=== PATIENT | female | born 1955 | race American Indian/Alaskan Native ===

== ENCOUNTER 2019-10-15 00:59 | Emergency (ER) | payer MEDICARE ==
[2019-10-15] MEDS ORDERED: traMADol 50 MG TAB PO ONE (01:58)
--- NOTE | 2019-10-15 02:22 | XRay Report ---
LEFT SHOULDER 3 VIEW(S) INDICATION / CLINICAL INFORMATION: fall injury COMPARISON: None available. FINDINGS: BONES / JOINT(S): No acute fracture or subluxation. No significant arthritis. SOFT TISSUES: No significant abnormality. ADDITIONAL FINDINGS: None. Signer Name: Annetta Chen MD Signed: 10/15/2019 2:18 AM Workstation Name: [id number]
--- NOTE | 2019-10-15 02:50 | Emergency Department Report ---
ED Extremity Problem HPI - General Chief complaint: Fall Stated complaint: FALL/L SHOULDER PAIN Time Seen by Provider: 10/15/19 01:51 Source: patient, family Mode of arrival: Wheelchair Limitations: No Limitations - History of Present Illness Initial comments: Patient is a 64-year-old F [place] female with past medical history of schizophrenia and also recent diagnosis of ascites who is still undergoing evaluation who is presenting status post fall. Patient states that she was going up her sister stairs with a heavy bag of [employer] salt and she lost her balance and fell backwards down approximately 6-7 stairs. She states she was trying to take care to not hit her head. She is denies any head injury or loss of consciousness. Patient is complaining of left shoulder pain which is worse with movement and better with rest. Patient states that the pain is 8 out of 10 in severity. She denies any abdominal pain hip pain or lower extremity pain at this time. Severity scale (0 -10): 4 - Related Data Previous Rx's Medication Instructions Recorded Last Taken Type methOCARBAMOL [Robaxin TAB] 500 mg PO Q6H PRN #14 tablet 10/15/19 Unknown Rx traMADoL [Ultram] 50 mg PO Q6HR PRN #12 tablet 10/15/19 Unknown Rx Allergies Allergy/AdvReac Type Severity Reaction Status Date / Time No Known Allergies Allergy Verified 10/15/19 01:10 ED Review of Systems ROS: Stated complaint: FALL/L SHOULDER PAIN Other details as noted in HPI Comment: All other systems reviewed and negative ED Past Medical Hx - Past Medical History Previous Medical History?: Yes Hx Hypertension: Yes Hx Congestive Heart Failure: Yes Hx Psychiatric Treatment: Yes (paranoid schizo) Additional medical history: hypothyroid. Hep C. - Surgical History Past Surgical History?: No - Social History Smoking Status: Never Smoker Substance Use Type: None - Medications Home Medications: Home Medications Medication Instructions Recorded Confirmed Last Taken Type methOCARBAMOL [Robaxin TAB] 500 mg PO Q6H PRN #14 tablet 10/15/19 Unknown Rx traMADoL [Ultram] 50 mg PO Q6HR PRN #12 tablet 10/15/19 Unknown Rx ED Physical Exam - General Limitations: No Limitations General appearance: alert, in no apparent distress - Head Head exam: Present: atraumatic, normocephalic - Eye Eye exam: Present: normal appearance - ENT ENT exam: Present: mucous membranes moist - Neck Neck exam: Present: normal inspection - Respiratory Respiratory exam: Present: normal lung sounds bilaterally. Absent: respiratory distress, wheezes, rales - Cardiovascular Cardiovascular Exam: Present: regular rate, normal rhythm, normal heart sounds. Absent: systolic murmur, diastolic murmur, rubs, gallop - GI/Abdominal GI/Abdominal exam: Present: soft, distended, normal bowel sounds. Absent: tenderness, guarding, rebound - Extremities Exam Extremities exam: Present: normal inspection - Expanded Upper Extremity Exam Left Shoulder Exam: Present: normal inspection, tenderness, tenderness over AC joint. Absent: full ROM, swelling, deformity - Back Exam Back exam: Present: normal inspection - Neurological Exam Neurological exam: Present: alert, oriented X3 - Psychiatric Psychiatric exam: Present: normal affect, normal mood - Skin Skin exam: Present: warm, dry, intact, normal color. Absent: rash ED Course Vital Signs 10/15/19 01:03 Temperature 98.2 F Pulse Rate 101 H Respiratory 20 Rate Blood Pressure 169/83 O2 Sat by Pulse 97 Oximetry ED Medical Decision Making - Radiology Data Ordering Physician: SONNY DUGAN MD Date of Service: 10/15/19 Procedure(s): XR shoulder 2+V LT Accession Number(s): [id number] cc: SONNY DUGAN MD Fluoro Time In Minutes: LEFT SHOULDER 3 VIEW(S) INDICATION / CLINICAL INFORMATION: fall injury COMPARISON: None available. FINDINGS: BONES / JOINT(S): No acute fracture or subluxation. No significant arthritis. SOFT TISSUES: No significant abnormality. ADDITIONAL FINDINGS: None. Signer Name: Annetta Chen MD Signed: 10/15/2019 2:18 AM Workstation Name: [id number] - Medical Decision Making No fracture or dislocation was found. Patient likely with rotator cuff injury. Patient be given orthopedics for follow-up. Critical care attestation.: If time is entered above; I have spent that time in minutes in the direct care of this critically ill patient, excluding procedure time. ED Disposition Clinical Impression: Rotator cuff injury Qualifiers: Encounter type: initial encounter Laterality: left Qualified Code(s): S46.002A - Unspecified injury of muscle(s) and tendon(s) of the rotator cuff of left marjorie zarate, initial encounter Disposition: TO HOME OR SELFCARE Is pt being admited?: No Does the pt Need Aspirin: No Condition: Stable Instructions: Rotator Cuff Injury (ED) Referrals: JORDAN QUIROZ MD [Staff Physician] - 3-5 Days Time of Disposition: 02:50
[2019-10-15 06:31] VITALS: BP 167/78
== END 2019-10-15 03:05 | disposition home or self-care (01) ==
LOC: ED 00:59
DX: S46.002A Unspecified injury of muscle(s) and tendon(s) of the rotator cuff of left shoulder, initial encounter (principal); I11.0 Hypertensive heart disease with heart failure; I50.9 Heart failure, unspecified; E03.9 Hypothyroidism, unspecified; F20.9 Schizophrenia, unspecified; Z79.899 Other long term (current) drug therapy; W17.89XA Other fall from one level to another, initial encounter; Y93.89 Activity, other specified; Y92.89 Other specified places as the place of occurrence of the external cause; Y99.8 Other external cause status